=== PATIENT | female | born 1975 | race Caucasian/White ===

== ENCOUNTER 2019-08-30 18:53 | Emergency (ER) | payer BC ==
[~2019-08-30] VITALS: Ht 157.5 cm; Wt 49.9 kg
[2019-08-30] MEDS ORDERED: CLARITIN10 MG PO (19:07)
[2019-08-30] MEDS ORDERED: DELSYM COU30 MG/5 M1 PO (19:07)
[2019-08-30 19:36] LABS: ABSOLUTE BASOPHILS 0.1 thou/uL (0.0-0.2); ABSOLUTE EOSINOPHILS 0.4 thou/uL (0.0-0.7); ABSOLUTE LYMPHOCYTES 2.3 thou/uL (0.8-5.3); ABSOLUTE MONOCYTES 0.6 thou/uL (0.0-1.2); ABSOLUTE NEUTROPHILS 3.8 thou/uL (1.6-8.1); BASOPHILS 0.9 %; EOSINOPHILS 6.1 %; HEMATOCRIT 40.8 % (37.0-47.0); HEMOGLOBIN 13.8 gm/dL (12.0-15.0); LYMPHOCYTES 31.5 %; MCH 30.5 pg (26.0-34.0); MCHC 33.8 g/dL (28.0-37.0); MONOCYTES 8.6 %; MPV 7.3 fl. (7.2-11.1); NUCLEATED RBCS 0 /100WBC; PLATELET COUNT* 192 thou/uL (150-400); POLYS 52.9 %; RBC 4.54 mil/uL (4.20-5.00); RDW-CV 12.7 % (10.5-14.5); WBC 7.2 thou/uL (4.0-11.0)
[2019-08-30] MEDS ORDERED: VENTOLIN HFA 1818 GM INH (19:43)
[2019-08-30] MEDS ORDERED: PREDNISONE 20 M20 M1 PO (19:43)
[2019-08-30 19:44] LABS: CALCIUM 8.5 mg/dL (8.5-10.1); CREATININE 0.8 mg/dL (0.6-1.3); POTASSIUM 3.6 mmol/L (3.5-5.1)
[2019-08-30 19:55] LABS: ALBUMIN 3.7 g/dL (3.4-5.0); TOTAL BILIRUBIN 0.6 mg/dL (<0.1-1.0); TOTAL PROTEIN 7.5 g/dL (6.4-8.2)
[2019-08-30 20:07] VITALS: BP 125/86
== END 2019-08-30 20:09 | disposition home or self-care (01) ==
LOC: M.ERS 18:53
PROVIDERS: Family Medicine
DX: R05 Cough (principal); J45.909 Unspecified asthma, uncomplicated